=== PATIENT | female | born 1970 | race Caucasian/White ===

== ENCOUNTER 2017-07-05 00:54 | Emergency (ER) | payer OTHER ==
[~2017-07-05] VITALS: Ht 165.1 cm; Wt 113.3 kg
[~2017-07-05 00:54] MED LIST: ATENOLOL50 MG PO; DELTASONE20 M1 PO; GABAPENTIN300 MG PO; LISINOPRIL20 MG PO; MELOXICAM7.5 MG PO; MORPHINE SULFAT15 M1 PO; NORVASC5 MG PO; OXYCODONE-APAP1 EACH PO; OXYCONTIN40 MG PO; PERCOCET 5/31 TABLET PO; TIZANIDINE HCL4 MG PO
[2017-07-05 01:25] LABS: BASOPHIL (%) 0.5 % (0-1); BASOPHIL COUNT 0.1 K/uL (0-0.1); EOSINOPHIL (%) 1.4 % (0-5); EOSINOPHIL COUNT 0.2 K/uL (0-0.3); HEMATOCRIT 44.2 % (36.0-46.0); HEMOGLOBIN 13.9 G/DL (11.9-15.5); IMMATURE GRANULOCYTE (%) 0.6 % (0.0-0.7); LYMPHOCYTE COUNT 3.4 K/uL (1.0-2.8); MCH 26.4 PG (29.0-34.0); MCHC 31.4 G/DL (30.0-36.0); MCV 83.9 FL (83-99); MONOCYTE (%) 7.5 % (3-12); MONOCYTE COUNT 0.9 K/uL (0-0.8); NEUTROPHIL COUNT 7.2 K/uL (1.8-6.4); PLATELET COUNT 559 K/uL (156-360); RBC DIS.WIDTH-CV 18.6 % (11.8-14.6); RBC DIS.WIDTH-SD 56.3 % (39-53); RED BLOOD COUNT 5.27 M/uL (3.80-5.20); WHITE BLOOD COUNT 11.7 K/uL (4.1-10.2)
[2017-07-05 01:33] LABS: CHLORIDE 109 mEq/L (99-109); POTASSIUM 3.5 mEq/L (3.7-5.4); SODIUM 144 mEq/L (136-147)
[2017-07-05 01:35] LABS: GLUCOSE 127 mg/dL (70-99)
[2017-07-05 01:39] LABS: CREATININE 0.8 mg/dL (0.6-1.3); GFR ESTIMATE (CALCULATED) > 59 mL/min/; UREA NITROGEN (BUN) 9 mg/dL (9-23)
[2017-07-05 01:49] LABS: QUANTITATIVE HCG < 4.0 MIU/ML
[2017-07-05 01:59] LABS: SERUM ETHYL ALCOHOL 122 mg/dL
[2017-07-05 03:25] LABS: ERTH.SED.RATE 38 MM/HR (0-20)
[2017-07-05] MEDS ORDERED: ZOFRAN ODT4 MG PO (06:15)
[2017-07-05] MEDS ORDERED: TORADOL10 MG PO (06:15)
[2017-07-05] MEDS ORDERED: MEDROL DOSEPAK4 MG PO (06:15)
[2017-07-05 06:25] LABS: C-REACTIVE PROTEIN 9.8 MG/L (0-10)
[2017-07-05 06:43] VITALS: BP 148/98
[2017-07-05 08:14] LABS: APPEARANCE SL.HAZY ((CLEAR)); COLOR YELLOW ((YELLOW)); PROTEIN (STRIP) TRACE; SPECIFIC GRAVITY 1.025 (1.000-1.030)
[2017-07-05 08:15] LABS: BILIRUBIN NEGATIVE; BLOOD NEGATIVE; GLUCOSE (STRIP) NEGATIVE; KETONES NEGATIVE; UROBILINOGEN 0.2 MG/DL (0.2-1.0)
[2017-07-05 08:18] LABS: LEUKOCYTES NEGATIVE; NITRITE NEGATIVE
[2017-07-05 08:31] LABS: BACTERIA RARE /HPF; EPITHELIAL CELLS 1+ /HPF; MUCUS 2+ /LPF; RED BLOOD CELLS 0-5 /HPF (0-5); UCUL ADDED? NO; WHITE BLOOD CELLS 0-5 /HPF (0-5)
== END 2017-07-05 06:43 | disposition home or self-care (01) ==
LOC: EME → EDBD 00:54 → EME 06:43
PROVIDERS: Emergency Medicine
DX: M54.16 Radiculopathy, lumbar region (principal); M54.9 Dorsalgia, unspecified; G89.29 Other chronic pain; F11.20 Opioid dependence, uncomplicated; M19.90 Unspecified osteoarthritis, unspecified site; F41.9 Anxiety disorder, unspecified; Z72.0 Tobacco use; Z88.5 Allergy status to narcotic agent; Z88.8 Allergy status to other drugs, medicaments and biological substances
CPT/HCPCS: 72148; 80048; 81003; 84702; 85025; 85652; 86140; 99281; 99285; G0480; J1100; J1170; J1885; J2060; J2405; J3010; J7050